=== PATIENT | female | born 1985 | race Caucasian/White ===

== ENCOUNTER → 2016-07-31 | Outpatient (CLI) | payer OTHER | LOC: M LAB 14:45 | PROVIDERS: ATTEND Specialist | DX: N91.2 Amenorrhea, unspecified (principal) ==

== ENCOUNTER → 2016-08-03 | Outpatient (CLI) | payer OTHER | LOC: M LAB 10:39 | PROVIDERS: ATTEND Specialist | DX: N91.2 Amenorrhea, unspecified (principal) ==

== ENCOUNTER → 2017-02-11 | Outpatient (CLI) | payer OTHER ==
[2017-02-11 14:31] LABS: PROLACTIN 18.7 NG/ML
[2017-02-11 14:32] LABS: FOLLICLE STIMULATING HORMONE 14.6 mIU/mL
[2017-02-11 14:39] LABS: FREE T4 1.05 NG/DL (0.76-1.46)
== END ==
LOC: M SMT 10:21
PROVIDERS: ATTEND Specialist
DX: N93.8 Other specified abnormal uterine and vaginal bleeding (principal)

== ENCOUNTER → 2017-11-08 | Outpatient (REF) | payer OTHER ==
[2017-11-08 14:50] LABS: CHLAMYDIA DNA AMPLIFICATION NEGATIVE (NEGATIVE); GC DNA AMPLIFICATION NEGATIVE (NEGATIVE)
== END ==
LOC: M LAB REF 13:01
DX: Z34.81 Encounter for supervision of other normal pregnancy, first trimester (principal)

== ENCOUNTER → 2017-12-03 | Outpatient (REF) | payer OTHER | LOC: M LAB REF 13:05 | DX: Z34.82 Encounter for supervision of other normal pregnancy, second trimester (principal) | CPT/HCPCS: 87086 ==

== ENCOUNTER → 2017-12-27 | Outpatient (CLI) | payer OTHER | LOC: M RAD 17:46 | DX: Z34.82 Encounter for supervision of other normal pregnancy, second trimester (principal); Z36.89 Encounter for other specified antenatal screening; Z3A.19 19 weeks gestation of pregnancy | CPT/HCPCS: 76811 ==

== ENCOUNTER → 2017-12-30 | Outpatient (CLI) | payer OTHER ==
[2017-12-30 13:37] LABS: HEMATOCRIT 38.3 % (36.0-47.0); HEMOGLOBIN 12.7 g/dl (12.0-15.5); MEAN CORPUSCULAR HEMOGLOBIN 29.3 pg (27.0-33.0); MEAN CORPUSCULAR HGB CONC 33.2 g/dl (32.0-36.5); MEAN CORPUSCULAR VOLUME 88.5 fl (80.0-96.0); PLATELET COUNT, AUTOMATED 241 10^3/uL (150-450); RED BLOOD COUNT 4.33 10^6/uL (4.00-5.40); RED CELL DISTRIBUTION WIDTH 13.3 % (11.5-14.5); WHITE BLOOD COUNT 10.1 10^3/uL (4.0-10.0)
[2017-12-30 14:00] LABS: TOTAL PROTEIN,RANDOM URINE < 5.0 MG/DL (0.0-12.0)
[2017-12-30 14:07] LABS: ALT/SGPT 19 U/L (12-78); AST/SGOT 12 U/L (7-37); BILIRUBIN,TOTAL 0.4 MG/DL (0.2-1.0); CREATININE FOR GFR 0.69 MG/DL (0.55-1.30); GLOMERULAR FILTRATION RATE > 60.0 (>60); LDH LACTATE DEHYDROGENASE 193 U/L (84-246); URIC ACID 4.6 MG/DL (2.6-6.0)
== END ==
LOC: M SMT 08:59
DX: R51 Headache (principal)

== ENCOUNTER → 2018-01-12 | Outpatient (CLI) | payer OTHER | LOC: M RAD 09:35 | DX: Z34.82 Encounter for supervision of other normal pregnancy, second trimester (principal) | CPT/HCPCS: 76816 ==

== ENCOUNTER → 2018-02-22 | Outpatient (CLI) | payer OTHER ==
[2018-02-22 12:21] LABS: BASO % 0.1 % (0.0-1.0); EOS # 0.1 10^3/uL (0.0-0.50); EOS % 0.8 % (0.0-3.0); HEMATOCRIT 34.7 % (36.0-47.0); HEMOGLOBIN 11.6 g/dl (12.0-15.5); IMMATURE GRANULOCYTE % 0.7 % (0-3.0); LYMPH # 1.3 10^3/uL (1.5-4.5); LYMPH % 13.2 % (24.0-44.0); MEAN CORPUSCULAR HEMOGLOBIN 30.4 pg (27.0-33.0); MEAN CORPUSCULAR HGB CONC 33.4 g/dl (32.0-36.5); MEAN CORPUSCULAR VOLUME 91.1 fl (80.0-96.0); MONO # 0.5 10^3/uL (0.0-0.8); MONO % 5.3 % (0.0-5.0); NEUTROPHILS # 7.9 10^3/uL (1.8-7.7); NEUTROPHILS % 79.9 % (36.0-66.0); PLATELET COUNT, AUTOMATED 225 10^3/uL (150-450); RED BLOOD COUNT 3.81 10^6/uL (4.00-5.40); WHITE BLOOD COUNT 9.9 10^3/uL (4.0-10.0)
[2018-02-22 12:36] LABS: GLUCOSE CHALLENGE TEST 1 HOUR 97 MG/DL (LESS THAN 140)
== END ==
LOC: M SMT 09:51
DX: Z34.82 Encounter for supervision of other normal pregnancy, second trimester (principal)
CPT/HCPCS: 82950

== ENCOUNTER → 2018-04-19 | Outpatient (REF) | payer OTHER | LOC: M LAB REF 13:18 | DX: O09.213 Supervision of pregnancy with history of pre-term labor, third trimester (principal) ==

== ENCOUNTER 2018-05-10 10:03 | Inpatient (IN) | payer OTHER ==
[2018-05-10 11:34] LABS: HEMOGLOBIN 12.2 g/dl (12.0-15.5); MEAN CORPUSCULAR HEMOGLOBIN 29.6 pg (27.0-33.0); MEAN CORPUSCULAR HGB CONC 33.9 g/dl (32.0-36.5); MEAN CORPUSCULAR VOLUME 87.4 fl (80.0-96.0); PLATELET COUNT, AUTOMATED 216 10^3/uL (150-450); RED BLOOD COUNT 4.12 10^6/uL (4.00-5.40); RED CELL DISTRIBUTION WIDTH 14.1 % (11.5-14.5); WHITE BLOOD COUNT 10.2 10^3/uL (4.0-10.0)
[2018-05-10 13:46] LABS: ALT/SGPT 15 U/L (12-78); AST/SGOT 15 U/L (7-37); CREATININE FOR GFR 0.84 MG/DL (0.55-1.30); GLOMERULAR FILTRATION RATE > 60.0 (>60)
[2018-05-10 13:47] LABS: BILIRUBIN,TOTAL 0.3 MG/DL (0.2-1.0); URIC ACID 6.1 MG/DL (2.6-6.0)
[2018-05-10 14:22] LABS: CREATININE,RANDOM URINE 38.9 MG/DL
[2018-05-10 14:22] LABS: TOTAL PROTEIN,RANDOM URINE 6.2 MG/DL (0.0-12.0)
[2018-05-10] MEDS: LR 1,000 ML IV (16:26)
[2018-05-10 17:54] LABS: LDH LACTATE DEHYDROGENASE 202 U/L (84-246)
[2018-05-10] MEDS: OXYTOCIN DRIP 30 UNITS in APPROPRIATE DILUENT 1 EA IV (18:17)
[2018-05-10] MEDS: ACETAMINOPHEN 500 MG TAB PO (18:38)
[2018-05-11] MEDS: LR 1,000 ML IV ×2 (00:44→07:30)
[2018-05-11] MEDS: PROMETHAZINE INJ 25 MG/ML VIAL (J2550) IV (02:58)
[2018-05-11] MEDS: BUTORPHANOL 2 MG/ML INJ (J0595) IV (02:59)
[2018-05-11 07:28] LABS: HEMATOCRIT 38.9 % (36.0-47.0); HEMOGLOBIN 13.2 g/dl (12.0-15.5); MEAN CORPUSCULAR HGB CONC 33.9 g/dl (32.0-36.5); MEAN CORPUSCULAR VOLUME 88.4 fl (80.0-96.0); PLATELET COUNT, AUTOMATED 214 10^3/uL (150-450); WHITE BLOOD COUNT 16.3 10^3/uL (4.0-10.0)
[2018-05-11] MEDS ORDERED: FENTANYL 2MCG/ML ROPIVACAINE 0.2% IN 0.9% NACL 200ML IVBAG As Ordered (07:43)
[2018-05-11] MEDS: FENTANYL/ROPIVACAINE/NACL BAG 200 ML EPIDURAL (08:19)
[2018-05-11] MEDS ORDERED: LACTATED RINGER'S 1000 ML IV (09:00)
[2018-05-11] MEDS: PRENATAL VITAMINS CHEWABLE TABLET PO (09:00)
[2018-05-11] MEDS ORDERED: diphenhydrAMINE INJ 50MG/ML VIAL (J1200) IV (09:00)
[2018-05-11] MEDS ORDERED: ePHEDrine SULFATE 25 MG/5 ML(5MG/ML) SYRINGE IV (09:00)
[2018-05-11] MEDS ORDERED: NALOXONE INJ 0.4 MG/1 ML VIAL (J2310) IV (09:00)
[2018-05-11] MEDS ORDERED: REFRIGERATOR IV KEYS XX (09:00)
[2018-05-11] MEDS ORDERED: EPIDURAL COMMENT XX (09:00)
[2018-05-11] MEDS ORDERED: EPIDURAL/PCA KEYS XX (09:00)
[2018-05-11] MEDS ORDERED: ONDANSETRON 4MG/2ML VIAL (J2405) IV (09:00)
[2018-05-11] MEDS: OXYTOCIN DRIP 30 UNITS in APPROPRIATE DILUENT 1 EA IV (10:47)
[2018-05-11] MEDS ORDERED: METHYLERGONOVINE MALEATE 0.2 MG/ML VIAL (J2210) As Ordered (10:57)
[2018-05-11] MEDS: METHYLERGONOVINE MALEATE 0.2 MG/ML VIAL (J2210) IM (11:00)
[2018-05-11] MEDS ORDERED: OXYTOCIN DRIP 30 UNITS in APPROPRIATE DILUENT 1 EA IV (11:26)
[2018-05-11] MEDS ORDERED: RHOGAM 300 MCG (1500 IU) INJ (J2790) IM (11:30)
[2018-05-11] MEDS ORDERED: DIBUCAINE 1% OINTMENT 30GM TOP (11:30)
[2018-05-11] MEDS ORDERED: MEASLES,MUMPS,RUBELLA VACCINE INJ (MMR-II) (90707) SC (11:30)
[2018-05-11] MEDS: IBUPROFEN 800 MG TAB PO ×2 (13:25→21:48)
[2018-05-11] MEDS: ACETAMINOPHEN 500 MG TAB PO (17:07)
[2018-05-12] MEDS: IBUPROFEN 800 MG TAB PO ×2 (05:33→16:09)
[2018-05-12] MEDS: ACETAMINOPHEN 500 MG TAB PO (07:56)
[2018-05-12] MEDS: DOCUSATE SODIUM 100 MG CAP PO ×2 (07:56→20:16)
[2018-05-12] MEDS: PRENATAL VITAMINS CHEWABLE TABLET PO (07:56)
[2018-05-12] MEDS ORDERED: PRENATAL VITAMINS CHEWABLE TABLET PO (09:00)
[2018-05-12] MEDS: FIORICET TAB PO (11:24)
[2018-05-13] MEDS: IBUPROFEN 800 MG TAB PO ×2 (01:49→13:40)
[2018-05-13] MEDS: valACYclovir HCL 500 MG TAB PO ×2 (02:39→09:21)
[2018-05-13] MEDS: PRENATAL VITAMINS CHEWABLE TABLET PO (09:21)
[2018-05-13 10:28] LABS: HEMATOCRIT 29.9 % (36.0-47.0); HEMOGLOBIN 9.9 g/dl (12.0-15.5); MEAN CORPUSCULAR HEMOGLOBIN 29.7 pg (27.0-33.0); MEAN CORPUSCULAR HGB CONC 33.1 g/dl (32.0-36.5); MEAN CORPUSCULAR VOLUME 89.8 fl (80.0-96.0); PLATELET COUNT, AUTOMATED 165 10^3/uL (150-450); RED BLOOD COUNT 3.33 10^6/uL (4.00-5.40); RED CELL DISTRIBUTION WIDTH 14.5 % (11.5-14.5); WHITE BLOOD COUNT 10.9 10^3/uL (4.0-10.0)
[2018-05-13 10:48] LABS: ALBUMIN 2.1 GM/DL (3.2-5.2); ALBUMIN/GLOBULIN RATIO 0.75 (1.00-1.93); ALKALINE PHOSPHATASE 98 U/L (45-117); ALT/SGPT 18 U/L (12-78); ANION GAP 8 MEQ/L (8-16); AST/SGOT 27 U/L (7-37); BILIRUBIN,TOTAL 0.2 MG/DL (0.2-1.0); BLOOD UREA NITROGEN 11 MG/DL (7-18); CALCIUM LEVEL 8.1 MG/DL (8.5-10.1); CARBON DIOXIDE LEVEL 27 MEQ/L (21-32); CHLORIDE LEVEL 106 MEQ/L (98-107); CREATININE FOR GFR 0.83 MG/DL (0.55-1.30); GLOMERULAR FILTRATION RATE > 60.0 (>60); GLUCOSE, FASTING 77 MG/DL (70-100); LDH LACTATE DEHYDROGENASE 213 U/L (84-246); POTASSIUM SERUM 4.1 MEQ/L (3.5-5.1); SODIUM LEVEL 141 MEQ/L (136-145); TOTAL PROTEIN 4.9 GM/DL (6.4-8.2); URIC ACID 6.2 MG/DL (2.6-6.0)
== END 2018-05-13 16:20 | disposition home or self-care (01) | DRG 775 ==
LOC: M LDO 10:03 → M LDI 10:51 → M OBS 05-11 13:53
PROC: 3E033VJ Introduction of Other Hormone into Peripheral Vein, Percutaneous Approach (ICD-10-PCS; 2018-05-10)
PROC: 10E0XZZ Delivery of Products of Conception, External Approach (ICD-10-PCS; principal; 2018-05-11)
PROC: 0HQ9XZZ Repair Perineum Skin, External Approach (ICD-10-PCS; 2018-05-11)
DX: O13.4 Gestational [pregnancy-induced] hypertension without significant proteinuria, complicating childbirth (principal); Z3A.38 38 weeks gestation of pregnancy; Z37.0 Single live birth; O34.211 Maternal care for low transverse scar from previous cesarean delivery; Z88.2 Allergy status to sulfonamides; O70.0 First degree perineal laceration during delivery